=== PATIENT | male | born 1970 | race Caucasian/White ===

== ENCOUNTER → 2021-02-22 | Outpatient (CLI) | payer OTHER, MEDICAID | LOC: M.MRI 02-08 11:30 | PROVIDERS: ATTEND Orthopaedic Surgery | DX: M17.12 Unilateral primary osteoarthritis, left knee (principal) ==

== ENCOUNTER → 2021-04-02 | Outpatient (CLI) | payer OTHER, MEDICAID ==
[~2021-04-02] MED LIST: BENZTROPINE MES1 MG PO; DESYREL150 MG PO; FLONASE 0.05%50 MCG INH; GAS-X125 MG PO; GLUCOPHAGE XR750 MG PO; IBUPROFEN 600600 M1 PO; INVEGA SUS39 MG/0.25 IM; OMEPRAZOLE40 MG PO; OXYCODONE HCL E20 MG PO; PERCOCET 10-321 EAC1 PO; TIZANIDINE HCL4 M1 PO; ZYLOPRIM300 MG PO
[2021-04-02 11:04] LABS: URINE BILIRUBIN NEGATIVE (Negative); URINE BLOOD NEGATIVE (Negative); URINE CLARITY CLEAR; URINE COLOR YELLOW; URINE GLUCOSE-RANDOM NEGATIVE (Negative); URINE KETONES NEGATIVE (Negative); URINE LEUKOCYTES-REFLEX NEGATIVE (Negative); URINE NITRITE-REFLEX NEGATIVE (Negative); URINE PROTEIN NEGATIVE (Negative); URINE SPECIFIC GRAVITY 1.025 (1.005-1.030); URINE UROBILINOGEN 0.2 E.U./dl (0.2-1.0)
[2021-04-02 11:05] LABS: ABSOLUTE BASOPHILS 0.1 thou/uL (0.0-0.2); ABSOLUTE EOSINOPHILS 0.1 thou/uL (0.0-0.7); ABSOLUTE LYMPHOCYTES 1.8 thou/uL (0.8-5.3); ABSOLUTE MONOCYTES 0.5 thou/uL (0.0-1.2); ABSOLUTE NEUTROPHILS 4.5 thou/uL (1.6-8.1); BASOPHILS 0.8 %; EOSINOPHILS 1.8 %; HEMATOCRIT 42.6 % (42.0-52.0); HEMOGLOBIN 14.9 gm/dL (14.0-18.0); LYMPHOCYTES 25.5 %; MCH 29.6 pg (26.0-34.0); MCV 84.6 fL (80.0-100.0); MONOCYTES 6.5 %; MPV 8.6 fl. (7.2-11.1); NUCLEATED RBCS 0 /100WBC; PLATELET COUNT* 191 thou/uL (150-400); POLYS 65.4 %; RBC 5.04 mil/uL (4.50-6.00); RDW-CV 13.9 % (10.5-14.5)
[2021-04-02 11:14] LABS: PROTIME 10.5 Seconds (9.20-11.50)
--- NOTE | 2021-04-02 11:16 | EKG ---
[place] [address] ELECTROCARDIOGRAM REPORT Name: SAGAR WEAVER Room: [facility]#: [id number] Admission: 04/02/21 Attend Phys: Chadwick Marshall, Discharge: Date of : 72 Date of Service: 04/02/21 1112 Report #: [id number] THIS REPORT FOR: //name// [facility] Test Date: 2021-04-02 Test Time: 11:12:46 Pat Name: SAGAR WEAVER Department: Room: Gender: Bi Consultant: : 1970 Requested By: Chadwick Marshall Order Number: [id number] Reading MD: Epifanio Holly Measurements Intervals Coy Rate: 63 P: 26 MT: 143 QRS: 53 QRSD: 86 T: 35 QT: 387 QTc: 397 Interpretive Statements Sinus rhythm Probable left atrial enlargement Abnormal R-wave progression, early transition No previous ECG available for comparison Electronically Signed On 04-02-2021 11:16:19 CDT by Epifanio Holly [email or web address] <ELECTRONICALLY SIGNED> By: Epifanio Holly MD, [facility] 04/02/211115 11 11 Epifanio Holly MD, FAC /EPI
[2021-04-02 11:18] LABS: ALBUMIN 3.8 g/dL (3.4-5.0); CALCIUM 8.6 mg/dL (8.5-10.1); CREATININE 1.1 mg/dL (0.6-1.3); POTASSIUM 3.8 mmol/L (3.5-5.1); TOTAL BILIRUBIN 0.2 mg/dL (<0.1-1.0); TOTAL PROTEIN 7.4 g/dL (6.4-8.2)
== END ==
LOC: M.LAB 03-26 08:29
PROVIDERS: ATTEND Orthopaedic Surgery
DX: Z01.812 Encounter for preprocedural laboratory examination (principal); Z01.818 Encounter for other preprocedural examination; Z20.822 Contact with and (suspected) exposure to COVID-19

== ENCOUNTER 2021-04-09 06:47 | Inpatient (IN) | payer OTHER, MEDICAID ==
[~2021-04-09] VITALS: Ht 182.9 cm; Wt 113.4 kg
[2021-04-09 09:25] VITALS: BP 122/64
[2021-04-09 14:55] VITALS: BP 138/86
--- NOTE | 2021-04-09 15:00 | NUR ---
PT ADMITTED POST OP KNEE REPLACEMENT. PT ORIENTED TO ROOM. PT AMBULATED TO BEDSIDE COMMODE AND VOIDED. PAIN MEDS GIVEN ORDERED. FALL RISK PRECAUTIONS IN PLACE. CALL LIGHT WITHIN REACH.
--- NOTE | 2021-04-09 17:31 | NUR ---
PT REMAINED ALERT AND ORIENTED. PT RESTING IN BED. UP TO BATHROOM WITH STAFF ASSISTANCE. PAIN MEDS GIVEN ORDERED. FALL RISK PRECAUTIONS IN PLACE. HOURLY ROUNDING COMPLETED.
[2021-04-09 19:45] VITALS: BP 138/93
[2021-04-10 00:18] VITALS: BP 132/61
[2021-04-10 04:06] VITALS: BP 124/86
[2021-04-10 05:13] LABS: HEMATOCRIT 38.9 % (42.0-52.0); HEMOGLOBIN 13.2 gm/dL (14.0-18.0)
[2021-04-10 05:23] LABS: CALCIUM 8.3 mg/dL (8.5-10.1); CREATININE 1.1 mg/dL (0.6-1.3); POTASSIUM 4.1 mmol/L (3.5-5.1)
[2021-04-10 05:25] LABS: APTT 23.2 Seconds (25.0-31.3); PROTIME 10.6 Seconds (9.20-11.50)
[2021-04-10 06:03] LABS: HEMATOCRIT 39.4 % (42.0-52.0); HEMOGLOBIN 13.5 gm/dL (14.0-18.0); MCH 29.1 pg (26.0-34.0); MCHC 34.3 g/dL (28.0-37.0); MCV 84.7 fL (80.0-100.0); MPV 9.4 fl. (7.2-11.1); RBC 4.66 mil/uL (4.50-6.00); RDW-CV 14.1 % (10.5-14.5); WBC 14.6 thou/uL (4.0-11.0)
--- NOTE | 2021-04-10 06:27 | NUR ---
PT ALERT AND ORIENTED, 2L-NC/CAPNO. UP WITH WALKER TO BATHROOM STANDBY ASSIST. POLAR PACK, JORDYN HOSE, FOOT PUMPS IN PLACE. PAIN WELL MANAGED, SCHEDULED OXYCONTIN GIVEN. HE WAS ABLE TO REST WELL MOST OF THE SHIFT. HE IS EATING/DRINKING WELL WITH NO NAUSEA. CPM USED AT 2100 FOR 2 HOURS, PAIN MINIMAL. RECEIVED ALL MEDS SCHEDULED.
--- NOTE | 2021-04-10 06:56 | NUR ---
NO OT RECOMMENDED AT THIS TIME. WILL DEFER TO PT
[2021-04-10 08:00] VITALS: BP 118/82
--- NOTE | 2021-04-10 12:23 | OP ---
[address] [address] OPERATIVE REPORT Name: SAGAR WEAVER Room: [address] M.R.#: [id number] Admission: 04/09/21 Attend Phys: Black Osborne Discharge: Date of : 72 Report #: [id number] THIS REPORT FOR: cc: Kayla Guido MD, Erin E. MD Greiner, Robert F. II DO ~ DOC #: [id number] Chadwick Marshall II, DO DATE OF SURGERY: 04/09/2021 PREOPERATIVE DIAGNOSIS: Left knee osteoarthritis. POSTOPERATIVE DIAGNOSIS: Left knee osteoarthritis. PROCEDURE: Left total knee arthroplasty. SURGEON: Chadwick Marshall II, DO BOWL ATTENDANT: None. ANESTHESIA: General endotracheal. ESTIMATED BLOOD LOSS: 50 mL ANTIBIOTICS: Ancef preoperatively. DRAINS: Medium Hemovac. COMPLICATIONS: None. CONDITION OF THE PATIENT: Stable to recovery room. IMPLANTS: Listed in the operative record and progress note. BRIEF HISTORY: The patient was seen in the preoperative area. Preoperative H and P was performed. Site was marked, questions were answered. Risks and benefits were discussed with the patient in detail about surgery. The patient wished to proceed, assuming all risks. DESCRIPTION OF PROCEDURE: The patient was taken to the operative suite, placed supine on the operating table, given appropriate anesthesia. A well-padded tourniquet was applied to the upper thigh, which was inflated to 300 mmHg after gravity exsanguination. The operative knee was sterilely prepped and draped. Surgery began by a midline incision and was carried down to subcutaneous tissues. A medial parapatellar arthrotomy was performed and carried down to bone. Patella was then everted and excess soft [place] [address] OPERATIVE REPORT Name: MEGSAGAR Room: [address] Lin Brown#: [id number] Admission: 04/09/21 Attend Phys: Black Osborne Discharge: Date of : 72 Report #: [id number] the femur. Femoral cutting block was then applied, checked with a drop lavonne for rotational alignment, pinned in appropriate position and appropriate cuts were made. A 4-in-1 cutting block was then applied, checked for rotational alignment, pinned in appropriate position and appropriate cuts were made. The tibia was then exposed. Excess meniscus was removed. Retractors were placed along the collateral ligaments. The tibial cutting block was then applied, pinned in appropriate position, checked with a drop lavonne for rotational alignment and slope and appropriate cut was made. The tibial bone was removed. The tibial base plate was then applied, checked for rotational alignment with a drop lavonne and pinned in appropriate position. Femur was then applied and the box cut was reamed. This was then trialed with appropriate spacer, which showed excellent fit and fill and excellent stability of the knee through all range of motion. The patella was reamed in appropriate fashion and sized to appropriate size. Three peg holes were drilled and it was then trialed and showed excellent flexion and extension, excellent tracking of the patellofemoral groove. These trials were removed. The tibia was punched in appropriate fashion. Bony ends were cleansed with Pulsavac irrigation and cement was mixed and applied to final implants. These were then malleted into position and held the knee in extension and compressed to allow cement to cure. After it cured, excess was removed with [place] and osteotome. The wound was then copiously irrigated and the final spacer was then malleted into position. The tourniquet was deflated. Hemostasis was obtained with electrocautery. Pain cocktail was injected medially. Medium Hemovac drain was then applied. Capsule was closed with #2 FiberWire and #1 Vicryl in a [id number] fashion. Skin was closed with 2-0 Vicryl, running 3-0 Monocryl. Dermabond and sterile dressing applied and Kirill wrap and PolarCare applied. The patient transported to recovery in stable condition. Counts were correct throughout the procedure. Chadwick Marshall II, DO RFSalty/AVIVA/AMI <ELECTRONICALLY SIGNED> By: Chadwick Marshall II, DO 04/10/21 1223 2054 2219Chadwick Marshall II, DO /nt
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
[2021-04-10 15:44] VITALS: BP 124/89
--- NOTE | 2021-04-10 16:13 | NUR ---
PT INDIDCATED HE LIVES IN [place]T WITH , PT LIVES ON THE THIRD FLOOR WITH MANY STAIRS TO NAVIGATE TO GET INSIDE OF APT. PT INDICATED HE NEEDS A WALKER, SIGNED WALKER SCRIPT PLACED IN PT'S CHART. PT IS NORMALLY ACTIVE AND INDEPENDENT W/CARES. PT INDICATED HE WOULD LIKE TO HAVE HH AT [place]. JOSE SEEN PT TO DISCUSS HH NEEDS, AND PT SPOUSE WOULD LIKE PT TO GO TO REHAB D/T STAIRS TO ENTER APT. CM TO CONT TO FOLLOW.
--- NOTE | 2021-04-10 19:20 | NUR ---
PT PROGRESSING TOWARDS DC GOALS. VSS AFEBRILE. PT AMBULARING WITH WALKER TO BATHROOM WITH STAND BY ASSISTANCE. PT IN CPM THIS EVENING. SALINE LOCK IN HIS. PT HAS [facility] HOSES ON BILATERALLY. WILL CONTINUE TO MONITOR PLAN OF CARE.
[2021-04-10 20:00] VITALS: BP 160/97
--- NOTE | 2021-04-11 03:42 | NUR ---
PT STILL HAVING PAIN AND MOBILITY ISSUES. HE IS UP WITH ASSISTANCE AND WALKER TO RESTROOM. BM OVERNIGHT, TOLERATING FOOD AND DRINKS WELL. URINATING OFTEN. RATES PAIN AT 8/10 MOSTLY AFTER GETTING UP. RECIEVED SCHEDULED PAIN MEDICATION. NO REPORTS OR NAUSEA/VOMITING. POLAR PAC, JORDYN HOSE AND SCDS IN PLACE. ALERT AND ORIENTED, ROOM AIR. WILL CONTINUE TO MONITOR.
[2021-04-11 05:20] LABS: HEMATOCRIT 38.8 % (42.0-52.0); HEMOGLOBIN 13.2 gm/dL (14.0-18.0)
[2021-04-11 08:50] VITALS: BP 141/104
--- NOTE | 2021-04-11 14:39 | NUR ---
cm discussed with pt and spouse snf options, they would prefer a snf around [facility] area, but are essentially okay with snf in /[place] area. gelene to fax referral to [facility]/and snf.
--- NOTE | 2021-04-11 15:13 | NUR ---
REFERRAL PACKET FAXED TO [facility] ([phone]) [facility] ([phone]) CONTACT LIAISON MARIA GUADALUPE. AWAITING APPROVAL. CM TO CONTINUE TO FOLLOW FOR SAFE D/C PLANNING.
[2021-04-11 16:00] VITALS: BP 125/95
[2021-04-11 19:40] VITALS: BP 129/94
--- NOTE | 2021-04-11 20:07 | NUR ---
PATIENT RESTING IN BED. PATIENT HAS COMPLAINTS OF PAIN TO KNEE, HAS SCHEDULED OXYCONTIN AND REQUESTED PRN HYDROCODONE X 1. PATIENT WORKED WITH THERAPY X 2 TODAY. PATIENT IS UP WITH MODERATE ASSIST WITH GAIT BELT AND WALKER. PATIENT HAS FAIR APPETITE. PATIENT TACHYCARDIC AND GIVEN ONE TIME NS BOLUS PER DR MARTINEZ WITH IMPROVEMENT. PATIENT DENIES ANY NEEDS AT THIS TIME. CALL LIGHT WITHIN REACH.
[2021-04-12] VITALS (7 sets, daily range): BP systolic 122–162; BP diastolic 77–97
--- NOTE | 2021-04-12 03:59 | NUR ---
PT A&OX4, VSS ON ROOM AIR. PT UP TO BSC WITH ASSIST, GB AND WALKER. CPM THERAPY. IV SALINE LOCKED. SCHEDULED PAIN MEDS GIVEN AND PRN PAIN MED REQUESTED AND GIVEN ODERED. ASSESSMENTS AND HOURLY ROUNDINGS COMPLETE, WILL CONTINUE TO MONITOR.
[2021-04-12 04:22] LABS: HEMOGLOBIN 12.8 gm/dL (14.0-18.0); MCV 84.8 fL (80.0-100.0)
[2021-04-12 04:25] LABS: ABSOLUTE EOSINOPHILS 0.2 thou/uL (0.0-0.7); ABSOLUTE LYMPHOCYTES 1.5 thou/uL (0.8-5.3); ABSOLUTE MONOCYTES 0.9 thou/uL (0.0-1.2); ABSOLUTE NEUTROPHILS 7.2 thou/uL (1.6-8.1); BASOPHILS 0.5 %; EOSINOPHILS 1.7 %; HEMATOCRIT 36.8 % (42.0-52.0); LYMPHOCYTES 15.8 %; MCH 29.5 pg (26.0-34.0); MCHC 34.8 g/dL (28.0-37.0); MONOCYTES 9.1 %; MPV 9.3 fl. (7.2-11.1); NUCLEATED RBCS 0 /100WBC; PLATELET COUNT* 176 thou/uL (150-400); POLYS 72.9 %; RBC 4.34 mil/uL (4.50-6.00); RDW-CV 14.1 % (10.5-14.5); WBC 9.8 thou/uL (4.0-11.0)
[2021-04-12 04:37] LABS: CALCIUM 8.4 mg/dL (8.5-10.1); CREATININE 0.9 mg/dL (0.6-1.3); POTASSIUM 3.6 mmol/L (3.5-5.1)
[2021-04-12] MEDS ORDERED: XARELTO10 MG PO (09:26)
--- NOTE | 2021-04-12 14:30 | NUR ---
Pt does not qualify for PT note, per PT, Pt can dc to home with HH. OT has not evaluated. CM updated Pt and of need for 2 disciplines to state that Pt needs SNF in order for insurance to pay. Both understand, plan to dc to home today with [facility] HH. Pt's father to provide dc transportation. Walker to be provided through [facility]
--- NOTE | 2021-04-12 15:52 | NUR ---
REFERRAL PACKET FAXED TO [facility] ([phone]) [facility] ([phone]) [address] [place] [address] AWAITING APPROVAL. CM TO CONTINUE TO FOLLOW FOR SAFE D/C PLANNING.
--- NOTE | 2021-04-12 16:52 | NUR ---
I have reviewed the documentation by Kalani Ortiz from 04/12/21 to 04/12/21 and I concur with it. PERLA CARPENTER
--- NOTE | 2021-04-12 18:23 | NUR ---
PATIENT RESTING IN BED. PATIENT IS UP WITH MODERATE ASSIST WITH GAIT BELT AND WALKER. PATIENT WORKED WITH THERPAY THIS AFTERNOON AND SNF RECOMMENDED. DISCHARGE HELD FOR PLACEMENT/INSURANCE AUTH. PATIENT PAIN IS CONTROLLED WITH SCHEDULED MEDICATION. PATIENT HAS FAIR APPETITE, DENIES ANY NAUSEA. PATIENT DENIES ANY NEEDS AT THIS TIME. CALL LIGHT WITHIN REACH.
--- NOTE | 2021-04-13 07:23 | NUR ---
PT A&OX4, VSS ON ROOM AIR. PT UP TO TOILET WITH SBA, GB & WALKER. IV SALINE LOCKED. CPM THERAPY. PAIN MED GIVEN ORDERED. PT SLEPT WELL. REPORT GIVEN AND CARE TRANSFERED TO DAY SHIFT NURSE AT APPROX 0710.
[2021-04-13 07:57] VITALS: BP 161/105
[2021-04-13 15:45] VITALS: BP 132/86
[2021-04-13 17:39] VITALS: BP 122/89
--- NOTE | 2021-04-13 18:40 | NUR ---
PATIENT HAS REMAINED A&OX4, COOPERATIVE WITH CARES THIS SHIFT. PATIENT NOTIFIED THAT HE WILL GET TO D/C WITH HOME HEALTH THIS AFTERNOON AND WAS HAPPY TO HEAR. THIS NURSE TOOK D/C PAPERWORK INTO PATIENT'S ROOM AT APPROX. 1745, IV REMOVED. PATIENT STATES HE IS STILL TRYING TO FIND SOMEONE TO TAKE HIM HOME AND THAT HE "MAY HAVE TO CALL THE AMBULANCE TO GET HIM UP INTO HIS APARTMENT." PATIENT STILL CURRENTLY ATTMPTING TO FIND RIDE HOME.
--- NOTE | 2021-04-13 21:04 | NUR ---
PATIENT DISCHARGED PER PRIVATE VEHICLE, VAN. AT 2044. PATIENT TOOK HIS POLAR CARE, CPMM AND ALL PERSONAL BELONGINGS. ACCOMPANIED BY TWO SCRATCHER TENDER TO CAR. TOLERATED WELL. PATIENT WILL GO TO HIS HOME AND CALL EMS FROM THERE TO ASSIST HIM IN GETTING INTO HOUSE IF NEEDED.
== END 2021-04-13 20:45 | disposition home health service (06) | DRG 470 ==
LOC: M.ORTHSURG 06:47 → M.TBA 08:08 → M.ORTHSURG 08:29 → M.TBA 10:36 → M.ORTHSURG 10:36 → EDSTATUS 14:31 → M.ORTHSURG 17:12
PROVIDERS: Internal Medicine; Orthopaedic Surgery; ADMIT Internal Medicine; ATTEND Internal Medicine
DX: M17.12 Unilateral primary osteoarthritis, left knee (principal); F32.9 Major depressive disorder, single episode, unspecified; K21.9 Gastro-esophageal reflux disease without esophagitis; I10 Essential (primary) hypertension; M10.9 Gout, unspecified; E78.00 Pure hypercholesterolemia, unspecified; E78.5 Hyperlipidemia, unspecified; E11.9 Type 2 diabetes mellitus without complications